=== PATIENT | male | born 1975 | race Caucasian/White ===

== ENCOUNTER 2016-05-26 21:19 | Inpatient (IN) | payer OTHER ==
[~2016-05-26] VITALS: Ht 170.2 cm; Wt 118.2 kg
[~2016-05-26 21:19] MED LIST: AMOXICILLIN875 MG PO; FLEXERIL 1010 MG/TAB PO; MEDROL 4MG DOSPA4 MG PO; NAPROSYN500 MG PO; NO HOME MEDICATIONS; NORCO 325 MG-51 TAB PO; NORCO 325 MG-7.1 TAB PO; PERCOCET 325 MG1 TA2 PO; ULTRAM 50MG TAB50 MG PO; VITAMIN C500 MG PO; ZANAFLEX 4MG TAB4 MG PO; ZANAFLEX2 MG PO; ZITHROMAX TRI-500 MG PO
[2016-05-26 21:38] LABS: BASO % 0.4 % (0.0-2.0); EOS # 0.1 (0.0-0.7); EOS % 1.7 % (0-4.0); GRAN # 4.2 (1.4-6.5); GRAN % 57.7 % (42.2-75.2); HEMATOCRIT 38.3 % (42.0-52.0); HEMOGLOBIN 13.1 g/dl (13.5-18.0); LYMPH % 27.9 % (20.0-51.0); MEAN CELL VOLUME 88 fl (80.0-100.0); MEAN CORPUSCULAR HEMOGLOBIN 30 pg (27.0-31.0); MEAN CORPUSCULAR HGB CONC 34 g/dl (33.0-37.0); MEAN PLATELET VOLUME 10.1 fl (7.4-10.4); MONO # 0.9 (0.1-0.6); PLATELET COUNT 270 K/mm3 (130-400); RED BLOOD COUNT 4.36 M/mm3 (4.20-5.60); REDCELL DISTRIBUTION WIDTH-CV 12.6 % (11.5-14.5); WHITE BLOOD COUNT 7.3 K/mm3 (4.8-10.8)
[2016-05-26 21:49] LABS: ADJUSTED CALCIUM 9.4 mg/dL (8.4-10.2); ALANINE AMINOTRANSFERASE 54 U/L (21-72); ALBUMIN 4.2 gm/dL (3.5-5.0); ALKALINE PHOSPHATASE 64 U/L (50-136); ANION GAP 15 mmol/L (7-16); BILIRUBIN,TOTAL 1.2 mg/dL (0.0-1.0); BLOOD UREA NITROGEN 16 mg/dL (9-20); CALCIUM 9.6 mg/dL (8.4-10.2); CARBON DIOXIDE 24 mmol/L (22-30); CHLORIDE 100 mmol/L (98-107); CREATININE, serum 0.95 mg/dL (0.66-1.25); GLUCOSE 82 mg/dL (74-106); MAGNESIUM 1.8 mg/dL (1.6-2.3); PHOSPHOROUS 2.2 mg/dL (2.5-4.5); POTASSIUM 4.2 mmol/L (3.4-5.0); SODIUM 140 mmol/L (137-145); TOTAL PROTEIN 7.1 gm/dL (6.4-8.2)
[2016-05-26 21:52] LABS: ACETAMINOPHEN < 10 ug/mL (10-30); SALICYLATE < 1.0 mg/dL
[2016-05-26 21:56] LABS: CREATINE KINASE 2678 U/L (55-170)
[2016-05-26 22:09] LABS: TROPONIN-I < 0.012 ng/mL (0.000-0.034)
[2016-05-27] VITALS (238 sets, daily range): BP systolic 116–157; BP diastolic 88–97; PULSE 93–114; TEMP 96.8–98.7; O2SAT 73–100
[2016-05-27 02:10] LABS: B-TYPE NATRIURETIC PEPTIDE 155 pg/mL (0-125)
[2016-05-27 06:05] LABS: ANION GAP 11 mmol/L (7-16); BLOOD UREA NITROGEN 11 mg/dL (9-20); CALCIUM 8.3 mg/dL (8.4-10.2); CARBON DIOXIDE 24 mmol/L (22-30); CHLORIDE 104 mmol/L (98-107); CREATINE KINASE 1554 U/L (55-170); CREATININE, serum 0.82 mg/dL (0.66-1.25); GLUCOSE 77 mg/dL (74-106); POTASSIUM 3.7 mmol/L (3.4-5.0); SODIUM 139 mmol/L (137-145)
[2016-05-27 06:16] LABS: TROPONIN-I < 0.012 ng/mL (0.000-0.034)
[2016-05-27 09:39] LABS: AMPHETAMINE URINE POSITIVE; BARBITURATES URINE NEGATIVE; BENZODIAZEPINES URINE POSITIVE; BUPRENORPHINE URINE NEGATIVE; METHADONE URINE NEGATIVE; OPIATES URINE NEGATIVE; OXYCODONE URINE POSITIVE; PHENCYCLIDINE URINE NEGATIVE; PROPOXYPHENE URINE NEGATIVE; THC CANNABINOIDS URINE POSITIVE
[2016-05-28 04:20] VITALS: BP 145/94; PULSE 107; TEMP 98.4
[2016-05-28 07:45] VITALS: BP 149/107; PULSE 101; TEMP 98.7
[2016-05-28 12:01] VITALS: BP 152/96; PULSE 99; TEMP 97.8
[2016-05-28] MEDS ORDERED: XANAX2 MG PO (12:37)
[2016-05-28] MEDS ORDERED: PROTONIX 40MG T40 MG PO (12:37)
[2016-05-28] MEDS ORDERED: TOPROL XL 25MG25 MG PO (12:37)
== END 2016-05-28 14:24 | disposition home or self-care (01) | DRG 897 ==
LOC: COL.ER 21:19 → ICU 05-27 00:08 → MEDICAL 05-27 00:08
PROVIDERS: Emergency Medicine; Internal Medicine; Nurse Practitioner Family
DX: F15.122 Other stimulant abuse with intoxication with perceptual disturbance (principal); M62.82 Rhabdomyolysis; F12.10 Cannabis abuse, uncomplicated; F11.10 Opioid abuse, uncomplicated; I10 Essential (primary) hypertension; F17.210 Nicotine dependence, cigarettes, uncomplicated; G89.29 Other chronic pain; M54.5 Low back pain; R07.89 Other chest pain; F10.10 Alcohol abuse, uncomplicated
CPT/HCPCS: 99233-AI; 99238; J1650; J2060; J3411; J7030; Q9967